=== PATIENT | female | born 1985 | race Caucasian/White ===

== ENCOUNTER 2016-10-17 13:40 | Emergency (ER) | payer MEDICAID ==
[~2016-10-17] VITALS: Ht 162.6 cm; Wt 46.3 kg
[2016-10-17 13:57] VITALS: BP 118/82
== END 2016-10-17 16:38 | disposition home or self-care (01) ==
LOC: ER 13:40
DX: Z32.01 Encounter for pregnancy test, result positive (principal); Z30.431 Encounter for routine checking of intrauterine contraceptive device; Z88.0 Allergy status to penicillin; Z88.1 Allergy status to other antibiotic agents; Z88.6 Allergy status to analgesic agent
CPT/HCPCS: 36415; 76801; 84702

== ENCOUNTER 2017-05-03 19:48 | Observation (INO) | payer MEDICAID ==
[2017-05-03] MEDS ORDERED: TERBUTALINE SULFATE 1 MG/ML 1ML VIAL SC ONE (20:37)
[2017-05-03 20:41] LABS: Urine Bilirubin Negative (Negative); Urine Blood Negative /uL (Negative); Urine Color Yellow (Yellow); Urine Glucose Normal (Normal); Urine Ketone 2+ (Negative); Urine Mucus FEW (None Seen); Urine Nitrite Negative (Negative); Urine RBC 1 /hpf (0 - 4); Urine Squamous Epithelial Cell FEW /hpf (<5)
== END 2017-05-03 22:43 | disposition home or self-care (01) | DRG 566 ==
LOC: LDRP 19:48
PROVIDERS: ADMIT Obstetrics & Gynecology; ATTEND Obstetrics & Gynecology
DX: O26.893 Other specified pregnancy related conditions, third trimester (principal); M54.9 Dorsalgia, unspecified; R10.9 Unspecified abdominal pain; Z3A.35 35 weeks gestation of pregnancy
CPT/HCPCS: 59025; 80307; 81001; 81002; G0378; J3105; 96365; 96366; 96372

== ENCOUNTER 2017-05-31 20:05 | Observation (INO) | payer MEDICAID ==
[2017-05-31] MEDS ORDERED: TERBUTALINE SULFATE 1 MG/ML 1ML VIAL SC ONE ×2 (20:52→21:00)
[2017-05-31 21:11] LABS: Urine Bacteria NONE SEEN /hpf (None Seen); Urine Blood Negative /uL (Negative); Urine Specific Gravity 1.011 (1.001-1.035); Urine WBC 8 /hpf (0 - 5)
[2017-05-31 21:25] LABS: Alcohol, Urine < 3.0 mg/dL (0-5); Amphetamine Screen, Urine NEGATIVE (NEGATIVE); Barbiturate Scree,Urine NEGATIVE (NEGATIVE); Benzodiazephine Screen, Urine NEGATIVE (NEGATIVE); Cannabinoid Screen, Urine NEGATIVE (NEGATIVE); Cocaine Screen, Urine NEGATIVE (NEGATIVE); Opiate Scree,Urine NEGATIVE (NEGATIVE); Phencyclidine Screen, Urine NEGATIVE (NEGATIVE)
== END 2017-05-31 21:20 | disposition home or self-care (01) | DRG 566 ==
LOC: LDRP 20:05
PROVIDERS: ADMIT Obstetrics & Gynecology; ATTEND Obstetrics & Gynecology
DX: O62.9 Abnormality of forces of labor, unspecified (principal); Z3A.37 37 weeks gestation of pregnancy
CPT/HCPCS: 59025; 80307; 81001; 96372; G0378; J3105

== ENCOUNTER 2017-06-09 07:05 | Inpatient (IN) | payer MEDICAID ==
[~2017-06-09] VITALS: Ht 162.6 cm; Wt 55.3 kg
[2017-06-09] VITALS (10 sets, daily range): BP systolic 97–121; BP diastolic 56–72
[2017-06-09] MEDS ORDERED: WITCH HAZEL-GLYCERIN PAD TOP PRN (07:45)
[2017-06-09] MEDS ORDERED: DERMOPLAST 60ML BOTTLE TOP PRN (07:45)
[2017-06-09] MEDS ORDERED: PHISODERM TOP SOLN 240ML BTL TOP PRN (07:45)
[2017-06-09] MEDS ORDERED: CARBOPROST TROMETHAMINE 250 MCG/1ML VIAL IM PRN (07:45)
[2017-06-09] MEDS ORDERED: PREN-96 PO (07:54)
[2017-06-09] MEDS ORDERED: ALBU2TAB4 PO (07:54)
[2017-06-09] MEDS ORDERED: ASPI81TA27 PO (07:54)
[2017-06-09] MEDS: LACTATED RINGER'S 1,000 ML IV SCH ×2 (07:55→08:30)
[2017-06-09 08:32] LABS: Basophils # (auto) 0.1 uL; Basophils % (auto) 1.5 % (0.0-2.0); Eosinophils # (auto) 0 uL; Eosinophils % (auto) 0.3 % (0.0-7.0); Hemoglobin 11.4 g/dL (12.2-16.2); Lymphocytes # (auto) 1.5 uL; Lymphocytes % (auto) 18.2 % (10.0-50.0); Mean Corpuscular Hemoglobin 31.8 pg (28.0-32.0); Mean Corpuscular Hgb Conc. 33.5 g/dL (32.0-36.0); Mean Corpuscular Volume 94.8 fL (80.0-100.0); Monocytes # (auto) 0.5 uL; Monocytes % (auto) 5.8 % (0.0-12.0); Neutrophils % (auto) 74.2 % (37.0-80.0); Platelet Count (auto) 134 10^3/uL (140-450); Red Blood Cells 3.58 10^6/uL (4.0-5.20); Red Cell Distribution Width 13.2 % (11.8-14.3)
[2017-06-09 08:38] LABS: Urine Bacteria FEW /hpf (None Seen); Urine Blood Negative /uL (Negative); Urine Mucus FEW (None Seen); Urine Specific Gravity 1.018 (1.001-1.035); Urine WBC 25 /hpf (0 - 5)
[2017-06-09 08:42] LABS: INR 0.86 (0.9-1.15); Partial Thromboplastin Time 25.4 sec (22.64-33.71); Prothrombin Time 9.4 sec (9.37-12.3)
[2017-06-09 08:48] LABS: Alcohol, Urine < 3.0 mg/dL (0-5); Amphetamine Screen, Urine NEGATIVE (NEGATIVE); Barbiturate Scree,Urine NEGATIVE (NEGATIVE); Benzodiazephine Screen, Urine NEGATIVE (NEGATIVE); Cannabinoid Screen, Urine NEGATIVE (NEGATIVE); Cocaine Screen, Urine NEGATIVE (NEGATIVE); Opiate Scree,Urine NEGATIVE (NEGATIVE); Phencyclidine Screen, Urine NEGATIVE (NEGATIVE)
[2017-06-09 08:52] LABS: Albumin 2.7 g/dL (3.4-5.0); Bilirubin, Total 0.4 mg/dL (0.2-1.0); Calcium 8.3 mg/dL (8.5-10.1); Potassium 4.2 mmol/L (3.5-5.1); Total Protein 5.9 g/dL (6.4-8.2); Uric Acid 4.3 mg/dL (2.6-6.0)
[2017-06-09] MEDS ORDERED: MORPHINE SULF(PF) 0.5MG/ML 10ML VIAL ONE (11:30)
[2017-06-09] MEDS ORDERED: ePHEDrine SULFATE 50 MG/ML AMP ONE (11:30)
[2017-06-09] MEDS ORDERED: OXYTOCIN 10 UNIT/ML 10ML VIAL ONE (11:32)
[2017-06-09] MEDS ORDERED: PHENYLEPHRINE HCL 10 MG/ML VL ONE (11:32)
[2017-06-09] MEDS ORDERED: CLINDAMYCIN 600MG IV 50 ML IV ONE (11:49)
[2017-06-09] MEDS ORDERED: METOCLOPRAMIDE HCL 5MG/ml INJ 2ml VIAL ONE (11:55)
[2017-06-09] MEDS ORDERED: MIDAZOLAM HCL 1MG/1ML-2 ML VIAL ONE ×2 (11:59→12:17)
[2017-06-09] MEDS ORDERED: HYDROmorphone HCL 2 MG/ML VL IV PRN ×2 (12:30→13:00)
[2017-06-09] MEDS ORDERED: ONDANSETRON HCL 4 MG/2 ML VIAL IV PRN (12:30)
[2017-06-09] MEDS ORDERED: NALOXONE HCL 0.4 MG/ML VIAL IV PRN ×2 (12:30)
[2017-06-09] MEDS ORDERED: KETOROLAC TROMETH 30 MG/ML 1ML VIAL IV PRN (12:30)
[2017-06-09] MEDS ORDERED: ONDANSETRON HCL 4 MG/2 ML VIAL IV ONE (12:30)
[2017-06-09] MEDS ORDERED: LACTATED RINGER'S 1,000 ML IV SCH (12:49)
[2017-06-09] MEDS ORDERED: LACT. RINGERS/OXYTOCIN 20UNITS 0 ML IV ONE (12:53)
[2017-06-09] MEDS ORDERED: LACT. RINGERS/OXYTOCIN 20UNITS 1,000 ML IV ONE (12:54)
[2017-06-09] MEDS: LACT. RINGERS/OXYTOCIN 20UNITS 1,000 ML IV SCH ×2 (14:30→22:30)
[2017-06-09] MEDS: diphenhdrAMINE HCL 50 MG/1 ML VL IV PRN ×2 (16:00→20:03)
[2017-06-09] MEDS: KETOROLAC TROMETH 30 MG/ML 1ML VIAL IV SCH ×2 (16:00→22:29)
[2017-06-09] MEDS: CLINDAMYCIN 600MG IV 50 ML IV SCH (18:30)
[2017-06-10] VITALS (12 sets, daily range): BP systolic 92–118; BP diastolic 57–86
[2017-06-10] MEDS: diphenhdrAMINE HCL 50 MG/1 ML VL IV PRN (00:11)
[2017-06-10] MEDS: CLINDAMYCIN 600MG IV 50 ML IV SCH ×2 (00:11→06:05)
[2017-06-10] MEDS: KETOROLAC TROMETH 30 MG/ML 1ML VIAL IV SCH (04:31)
[2017-06-10] MEDS: LACT. RINGERS/OXYTOCIN 20UNITS 1,000 ML IV SCH (06:05)
[2017-06-10 06:48] LABS: Basophils # (auto) 0 uL; Basophils % (auto) 0.2 % (0.0-2.0); Eosinophils # (auto) 0 uL; Eosinophils % (auto) 0.1 % (0.0-7.0); Hematocrit 26.7 % (36.0-46.0); Hemoglobin 9.1 g/dL (12.2-16.2); Lymphocytes # (auto) 0.8 uL; Lymphocytes % (auto) 8.5 % (10.0-50.0); Mean Corpuscular Hemoglobin 32.7 pg (28.0-32.0); Mean Corpuscular Hgb Conc. 34.1 g/dL (32.0-36.0); Mean Corpuscular Volume 95.9 fL (80.0-100.0); Monocytes # (auto) 0.5 uL; Monocytes % (auto) 5.5 % (0.0-12.0); Neutrophils # (auto) 8.4 uL; Neutrophils % (auto) 85.7 % (37.0-80.0); Platelet Count (auto) 98 10^3/uL (140-450); Red Blood Cells 2.79 10^6/uL (4.0-5.20); Red Cell Distribution Width 12.9 % (11.8-14.3); White Blood Cell 9.8 10^3/uL (4.4-10.8)
[2017-06-10] MEDS ORDERED: BISACODYL 10 MG RECT SUPP PR PRN (07:15)
[2017-06-10] MEDS ORDERED: ACETAMINOPHEN/CODEINE#3 (300/30mg) TAB PO PRN (09:15)
[2017-06-10] MEDS: DOCUSATE CALCIUM 240 MG CAP PO SCH (09:40)
[2017-06-10] MEDS: FERROUS SULFATE 325 MG TAB PO SCH ×2 (09:40→21:54)
[2017-06-10] MEDS: DOCUSATE SOD 100 MG CAP PO SCH ×2 (09:40→21:54)
[2017-06-10] MEDS: SIMETHICONE 80 MG CHEWABLE TABLET PO SCH ×4 (09:41→21:54)
[2017-06-10] MEDS: IBUPROFEN 800 MG TAB PO PRN ×2 (12:00→19:50)
[2017-06-10] MEDS: ACETAMINOPHEN/CODEINE#3 (300/30mg) TAB PO PRN (12:29)
[2017-06-10] MEDS: traMADol HCL 50 MG TAB PO PRN ×2 (16:16→21:55)
[2017-06-11] MEDS: IBUPROFEN 800 MG TAB PO PRN ×3 (03:42→20:46)
[2017-06-11 03:43] VITALS: BP 113/62
[2017-06-11] MEDS: SIMETHICONE 80 MG CHEWABLE TABLET PO SCH ×4 (05:38→22:56)
[2017-06-11] MEDS: traMADol HCL 50 MG TAB PO PRN ×3 (05:38→17:40)
[2017-06-11 07:45] VITALS: BP 101/61
[2017-06-11] MEDS: FERROUS SULFATE 325 MG TAB PO SCH ×2 (10:30→22:56)
[2017-06-11] MEDS: DOCUSATE SOD 100 MG CAP PO SCH ×2 (10:30→22:56)
[2017-06-11] MEDS: DOCUSATE CALCIUM 240 MG CAP PO SCH (10:30)
[2017-06-11 12:02] VITALS: BP 94/60
[2017-06-11 16:00] VITALS: BP 110/61
[2017-06-11 18:45] VITALS: BP 107/73
[2017-06-11] MEDS: ACETAMINOPHEN/CODEINE#3 (300/30mg) TAB PO PRN (20:46)
[2017-06-11 23:00] VITALS: BP 100/60
[2017-06-12] MEDS: traMADol HCL 50 MG TAB PO PRN ×2 (00:09→08:43)
[2017-06-12 03:00] VITALS: BP 111/71
[2017-06-12] MEDS: SIMETHICONE 80 MG CHEWABLE TABLET PO SCH ×2 (05:34→12:00)
[2017-06-12] MEDS: IBUPROFEN 800 MG TAB PO PRN (05:34)
[2017-06-12 07:55] VITALS: BP 112/80
[2017-06-12] MEDS: DOCUSATE CALCIUM 240 MG CAP PO SCH (10:00)
[2017-06-12] MEDS: DOCUSATE SOD 100 MG CAP PO SCH (10:00)
[2017-06-12 13:17] VITALS: BP 112/65
== END 2017-06-12 12:00 | disposition home or self-care (01) | DRG 540 ==
LOC: LDRP 07:05
PROVIDERS: ADMIT Obstetrics & Gynecology; ATTEND Obstetrics & Gynecology
PROC: 10D00Z1 Extraction of Products of Conception, Low, Open Approach (ICD-10-PCS; principal; 2017-06-09 11:33)
DX: O36.5930 Maternal care for other known or suspected poor fetal growth, third trimester, not applicable or unspecified (principal); J45.909 Unspecified asthma, uncomplicated; O99.52 Diseases of the respiratory system complicating childbirth; Z37.0 Single live birth; Z3A.38 38 weeks gestation of pregnancy; O34.211 Maternal care for low transverse scar from previous cesarean delivery
CPT/HCPCS: 36415; 51702; 59025; 80053; 80307; 81001; 84550; 85025; 85610; 85730; 86850; 86900; 86901; 96361; 96365; 96366; 96374; 96375; J1885; J2250; J2405; J2590; J3490